=== PATIENT | male | born 1965 | race African-American/Black ===

== ENCOUNTER 2023-03-06 22:41 | Emergency (ER) | payer OTHER ==
[~2023-03-06] VITALS: Ht 177.8 cm; Wt 90.0 kg
[2023-03-06 22:43] VITALS: O2SAT 97
[2023-03-06] MEDS ORDERED: METOCLOPRAMIDE HCL 10MG TABLET PO ONE (23:00)
[2023-03-06] MEDS ORDERED: KETOROLAC 60MG/2ML VIAL IM ONE (23:00)
[2023-03-06] MEDS ORDERED: METO-293 MT (23:49)
[2023-03-06] MEDS ORDERED: DIPH25CA83 MT (23:49)
[2023-03-06] MEDS ORDERED: NAPR-1074 MT (23:49)
[2023-03-07 00:45] VITALS: BP 118/82
[2023-03-07] MEDS ORDERED: METOCLOPRAMIDE HCL 10MG TABLET PO NR (00:45)
[2023-03-07] MEDS ORDERED: KETOROLAC 30MG/ML VIAL IM NR (00:45)
[2023-03-07 01:16] VITALS: PULSE 100; RESP 16; TEMP 97.3
== END 2023-03-07 01:18 | disposition home or self-care (01) ==
LOC: ER 22:41
DX: G43.909 Migraine, unspecified, not intractable, without status migrainosus (principal); G47.00 Insomnia, unspecified
CPT/HCPCS: 99283; 96372; J8597; J1885